=== PATIENT | female | born 1970 | race Hispanic/Latino ===

== ENCOUNTER 2021-08-27 22:19 | Emergency (ER) | payer BC ==
[~2021-08-27] VITALS: Ht 154.9 cm; Wt 98.6 kg
[2021-08-27 22:42] VITALS: BP 162/86
[2021-08-27 22:45] VITALS: BP 164/94
[2021-08-27 23:00] VITALS: BP 155/74
[2021-08-27 23:28] LABS: HEMATOCRIT 47.5 % (37.0-47.0); IMMATURE GRANULOCYTES 0.1 % (0.0-5.0); MEAN CELL VOLUME 90.6 fL CALC (80.0-100.0); MEAN CORPUSCULAR HGB 28.6 pG CALC (26.0-32.0); MEAN CORPUSCULAR HGB CONC 31.6 g/dL CAL (32.0-36.0); NEUT# 5.85 thou/uL (2.00-7.15); RED BLOOD COUNT 5.24 mill/uL (4.20-5.60)
[2021-08-27 23:39] LABS: URINE BILIRUBIN - DIPSTICK NEGATIVE (NEGATIVE); URINE BLOOD DIPSTICK NEGATIVE (NEGATIVE); URINE COLOR YELLOW; URINE GLUCOSE - DIPSTICK NEGATIVE (NEGATIVE); URINE KETONE NEGATIVE (NEGATIVE); URINE LEUK ESTERASE NEGATIVE (NEGATIVE); URINE PROTEIN - DIPSTICK NEGATIVE (NEG-TRACE); URINE UROBILINOGEN - DIPSTICK 0.2 E.U./dL (0.2)
[2021-08-27 23:41] LABS: URINE NITRITE - DIPSTICK NEGATIVE (Negative)
[2021-08-27 23:55] LABS: ALBUMIN 4.2 g/dL (3.2-5.0); ALKALINE PHOSPHATASE 94 u/l (38-126); BILIRUBIN, TOTAL 0.4 mg/dL (0.0-1.4); BUN 9 mg/dL (7-17); BUN/CREATININE RATIO 17 (12-20 (CALC)); CARBON DIOXIDE 28 mmol/l (22-30); CHLORIDE 105 mmol/l (95-108); CPK 79 u/l (30-165); CREATININE 0.5 mg/dL (0.5-1.0); GFR FOR AFR.AMER. > 60 ML/MIN (>=60 (CALC)); GFR OTHER RACES > 60 ML/MIN (>=60 (CALC)); MAGNESIUM 2.3 mg/dL (1.6-2.3); SGOT/AST 37 u/l (14-36); SODIUM 139 mmol/l (137-146); TOTAL PROTEIN 8.2 g/dL (6.3-8.2)
[2021-08-28 00:01] LABS: ANION GAP 10 (6-22 (CALC)); POTASSIUM 4.2 mmol/l (3.5-5.1)
[2021-08-28 00:03] LABS: MYOGLOBIN 26 ng/mL (0 - 62)
[2021-08-28 00:25] VITALS: BP 155/74
== END 2021-08-28 00:35 | disposition home or self-care (01) | DRG 918 ==
LOC: ED 22:19
PROVIDERS: Family Medicine
DX: T63.481A Toxic effect of venom of other arthropod, accidental (unintentional), initial encounter (principal); E66.9 Obesity, unspecified